=== PATIENT | male | born 1990 | race Caucasian/White ===

== ENCOUNTER 2017-02-09 21:11 | Emergency (ER) | payer MEDICAID ==
[~2017-02-09] VITALS: Ht 180.3 cm; Wt 79.0 kg
[2017-02-10] MEDS ORDERED: BACITRACIN ZINC OINT UDPKT TOP ONE (01:15)
[2017-02-10] MEDS ORDERED: LIDOCAINE HCL/EPINEPHRINE 1%-EPI 1:100,000 20 ML VIAL MC ONE (01:15)
[2017-02-10 02:54] VITALS: BP 118/73
== END 2017-02-10 02:57 | disposition home or self-care (01) ==
LOC: ER 21:11
DX: S01.511A Laceration without foreign body of lip, initial encounter (principal); Z90.49 Acquired absence of other specified parts of digestive tract; W01.0XXA Fall on same level from slipping, tripping and stumbling without subsequent striking against object, initial encounter; Y93.51 Activity, roller skating (inline) and skateboarding; Y92.488 Other paved roadways as the place of occurrence of the external cause
CPT/HCPCS: 12011; 99283; J3490; X7700; Z7610